=== PATIENT | male | born 1970 | race Caucasian/White ===

== ENCOUNTER 2019-03-23 10:04 | Day surgery (SDC) | payer OTHER ==
[~2019-03-23] VITALS: Ht 175.3 cm; Wt 113.0 kg
[~2019-03-23 10:04] MED LIST: ACET500C5 PO
[2019-03-23 11:20] VITALS: Ht 175.3 cm; Wt 113.0 kg
[2019-03-23] MEDS ORDERED: no home meds (11:33)
[2019-03-23 11:49] VITALS: BP 127/70; PULSE 68; RESP 24
[2019-03-23] MEDS ORDERED: PROPOFOL 40 ML ONE (11:54)
--- NOTE | 2019-03-23 11:57 | PREAC ---
Date/Time of Note Date/Time of Note DATE: 03/23/19 TIME: 11:55 Anesthesia Eval and Record Evaluation Time Pre-Procedure Interview DATE: 03/23/19 TIME: 11:55 Age 48 Sex male NPO: 8 hrs Preoperative diagnosis HX COLON CANCER Planned procedure COLONOSCOPY Past Medical History Past Medical History: Includes Cardio: HTN Pulm: Sleep Apnea GI: Obesity (BMI 37) Surgery & Anesthesia Issues No known issue Meds Anticoagulation: No Beta Sarah within 24 hr: No Reason Beta Sarah not given: Pt. not on B-Sarah Reported Medications [no home meds] No Conflict Check 03/23/19 Discontinued Reported Medications Acetaminophen* (Tylophen*) 500 Mg Capsule, 500 MG PO Q6H PRN for PAIN LEVEL 8- 10, TAB 10/08/16 Meds reviewed: Yes Allergies Coded Allergies: No Known Drug Allergy (Verified Allergy, Unknown, 03/23/19) Allergies Reviewed: Yes Labs/Studies Labs Reviewed: Reviewed by anesthesiologist (N/A) test: N/A Pre-procedure Exam Last vitals Vital Signs Date Temp Pulse Resp B/P (MAP) Pulse Ox O2 O2 Flow FiO2 Time Delivery Rate 03/23/19 98.1 68 24 127/70 96 Room Air 11:49 (89) Airway: Adequate mouth opening, Adequate thyromental dist Mallampati: Mallampati II Teeth: Normal Lung: Normal Heart: Normal ASA Physical Status ASA physical status: 2 Emergency: None Planned Anesthetic General/MAC: MAC Planned Pain Management Parenteral pain med, Local by surgeon Pre-operative Attestations Prior to commencing anesthesia and surgery, the patient was re-evaluated, there was verification of: *The patient's identity *The results of appropriate recent lab work and preoperative vital signs *The above evaluation not changing prior to induction *Anesthetic plan, risk benefits, alternative and complications discussed with patient/family; questions answered; patient/family understands, accepts and wishes to proceed. ADA MOYA Mar 23, 2019 11:57
[2019-03-23 13:02] VITALS: BP 106/64; PULSE 61; RESP 14
== END 2019-03-23 13:24 | disposition home or self-care (01) ==
LOC: GIL 10:04
PROVIDERS: ATTEND Internal Medicine Gastroenterology
DX: K62.5 Hemorrhage of anus and rectum (principal); K62.6 Ulcer of anus and rectum; I10 Essential (primary) hypertension
CPT/HCPCS: 45385; Z7610; 88305